=== PATIENT | female | born 1965 | race African-American/Black ===

== ENCOUNTER 2017-08-26 01:53 | Emergency (ER) | payer SELFPAY ==
[~2017-08-26] VITALS: Ht 165.1 cm; Wt 73.0 kg
[2017-08-26] MEDS ORDERED: OLANZAPINE 10 MG/VIAL IM ONE (03:45)
[2017-08-26 04:20] LABS: BASOPHILS % 0.6 % (0.0-2.0); EOSINOPHILS % 0.3 % (0.0-5.0); HEMATOCRIT. 39.8 % (36.0-48.0); HEMOGLOBIN. 13.2 g/dL (12.0-16.0); LYMPHOCYTES % 25.3 % (20.0-50.0); MEAN CORPUSCULAR HEMOGLOBIN 31.3 pg (28.0-32.0); MEAN CORPUSCULAR VOLUME 94.4 fL (81.0-99.0); MONOCYTES % 6.1 % (2.0-8.0); NEUTROPHILS % 67.7 % (40.0-76.0); PLATELET 283 x1000/uL (130-400); RED BLOOD CELL COUNT 4.21 mill/uL (4.2-5.4)
[2017-08-26 04:24] LABS: CHLORIDE 109 mEq/L (98-107)
[2017-08-26 04:29] LABS: HCG SCREEN NEGATIVE
[2017-08-26 04:35] LABS: CARBON DIOXIDE 29 mEq/L (21-32)
[2017-08-26 04:38] LABS: ETHANOL BLOOD 119 mg/dL
[2017-08-26 06:01] LABS: CLARITY URINE CLEAR (CLEAR); COLOR URINE YELLOW (YELLOW); KETONES URINE NEGATIVE (NEGATIVE); LEUKOCYTE ESTERASE URINE NEGATIVE (NEGATIVE); NITRITE URINE NEGATIVE (NEGATIVE); OCCULT BLOOD URINE NEGATIVE (NEGATIVE); PROTEIN URINE NEGATIVE (NEGATIVE); SPECIFIC GRAVITY URINE 1.008 (1.005-1.030); UROBILINOGEN URINE 0.2 E.U./dL (0.2-1.0)
[2017-08-26 06:11] LABS: *AMPHETAMINES SCREEN URINE NEGATIVE (NEGATIVE); *BARBITURATES SCREEN URINE NEGATIVE (NEGATIVE); *BENZODIAZEPINES SCREEN URINE NEGATIVE (NEGATIVE); *COCAINE SCREEN URINE NEGATIVE (NEGATIVE); CANNABINOID URINE SCREEN PRESUMTIVE POSITIVE (NEGATIVE); METHADONE URINE SCREEN NEGATIVE (NEGATIVE); OPIATES URINE SCREEN NEGATIVE (NEGATIVE); PHENCYCLIDINE URINE SCREEN NEGATIVE (NEGATIVE)
[2017-08-26] MEDS ORDERED: SODIUM CHLORIDE 0.9% 1,000 ML IV ONE (06:46)
[2017-08-26] MEDS ORDERED: SODIUM CHLORIDE 0.9% 1000ML BAG (SEPSIS BOLUS) IV ONE (07:00)
[2017-08-26 11:00] VITALS: BP 131/77
== END 2017-08-26 14:52 | disposition home or self-care (01) ==
LOC: ER 01:53
DX: F91.9 Conduct disorder, unspecified (principal); I10 Essential (primary) hypertension; Z88.2 Allergy status to sulfonamides
CPT/HCPCS: 36415; 80053; 80305; 80307; 80329; 81003; 83605; 84703; 85025; 87040; 93005; 96360; 96361; 96372; 99285; G0482; J3490; J7030; Z7610; A4315

== ENCOUNTER 2024-08-31 10:38 | Emergency (ER) | payer MEDICAID ==
[~2024-08-31] VITALS: Ht 165.1 cm; Wt 76.0 kg
[2024-08-31 10:40] VITALS: O2SAT 99
[2024-08-31 11:33] LABS: BASOPHILS % 0.5 % (0.0-2.0); EOSINOPHILS % 0.1 % (0.0-5.0); HEMATOCRIT. 45.1 % (36.0-48.0); MEAN CORPUSCULAR HEMOGLOBIN 32.1 pg (28.0-32.0); MEAN CORPUSCULAR HGB CONC 33.2 g/dL (31.0-37.0); MEAN CORPUSCULAR VOLUME 96.6 fL (81.0-99.0); MEAN PLATELET VOLUME 9.3 fl (7.4-10.4); NEUTROPHILS % 83.4 % (40.0-76.0); PLATELET 296 x1000/uL (130-400); RED BLOOD CELL COUNT 4.67 mill/uL (4.2-5.4); RED CELL DISTRIBUTION WIDTH 12.6 % (11.6-14.6); WHITE BLOOD COUNT 12.8 x1000/uL (4.5-11.0)
[2024-08-31 11:39] LABS: CHLORIDE 99 mEq/L (98-107); POTASSIUM 4.1 mEq/L (3.5-5.1); SODIUM 132 mEq/L (136-145)
[2024-08-31 11:40] LABS: CALCIUM 9.6 mg/dL (8.7-10.4); CARBON DIOXIDE 20 mEq/L (21-32)
[2024-08-31 11:45] LABS: CREATININE 1.2 mg/dL (0.6-1.0); GLUCOSE 383 mg/dL (70-105); UREA NITROGEN BLOOD 13 mg/dL (9-23)
[2024-08-31 11:46] LABS: TROPONIN I HIGH SENSITIVITY 9 ng/L (3.0-34)
[2024-08-31 11:47] LABS: BETA HYDROXYBUTYRATE 4.5 mMol/L (0.0-0.3)
[2024-08-31 12:16] LABS: BG CARBOXYHEMOGLOBIN 1.7 % (0.5-1.5); BG DEOXYHEMOGLOBIN 3.7 % (0.0-5.0); BG FRACTION INSPIRED OXYGEN 21; BG HCO3 ACT 17.1 mmol/L (21.0-28.0); BG METHEMOGLOBIN 0.3 % (0.5-1.5); BG OXYGEN SATURATION 96.2 % (94.0-98.0); BG OXYHEMOGLOBIN 94.3 % (94.0-98.0); BG PCO2 34.1 mmHg (32.0-45.0); BG PH 7.318 (7.350-7.450); BG PO2 87.5 mmHg (83.0-108.0); BG SAMPLE SITE RIGHT BRACHIAL; BG TOTAL HEMOGLOBIN 15.2 g/dL (12.0-16.0); BG VENT MODE ROOM AIR
[2024-08-31] MEDS: INSULIN REGULAR (HUMULIN R) 1000UNITS/10ML VIAL IV ONE (12:58)
[2024-08-31] MEDS: SODIUM CHLORIDE 0.9% 1,000 ML IV ONE (13:00)
[2024-08-31] MEDS ORDERED: AMLO10TA80 MT (13:04)
[2024-08-31] MEDS ORDERED: METF750T46 MT (13:04)
[2024-08-31 17:06] VITALS: O2SAT 100
[2024-08-31 17:07] VITALS: BP 147/78; PULSE 84; RESP 15; TEMP 97.7
[2024-09-04] MEDS ORDERED: INSU100I28 SQ (16:24)
[2024-09-05] MEDS ORDERED: METF-414 PO (10:14)
[2024-09-05] MEDS ORDERED: INSU100I28 SQ (10:14)
[2024-09-05] MEDS ORDERED: GLIP5TAB22 PO (10:14)
[2024-09-05] MEDS ORDERED: EMPA10TA PO (10:14)
== END 2024-08-31 18:26 | disposition home or self-care (01) ==
LOC: ER 10:38 → EDBEDREQ 14:33 → EDBEDREQTM 14:33 → ER 18:26
DX: E11.65 Type 2 diabetes mellitus with hyperglycemia (principal); F12.10 Cannabis abuse, uncomplicated; I10 Essential (primary) hypertension; Z88.2 Allergy status to sulfonamides
CPT/HCPCS: 80048; 82010; 82962; 85025; 84484; 36415; 71045; 82805; 82375; 96361; 96374; 99284; 36600; J1815; J7030; Z7610; A4606

== ENCOUNTER 2025-07-14 19:13 | Emergency (ER) | payer MEDICAID ==
[~2025-07-14] VITALS: Ht 165.1 cm; Wt 73.0 kg
[~2025-07-14 19:13] MED LIST: AMLO10TA80 MT; EMPA10TA PO; GLIP5TAB22 PO; INSU100I28 SQ; METF-414 PO
[2025-07-14 19:24] VITALS: O2SAT 100
[2025-07-14 21:16] LABS: BASOPHILS % 0.5 % (0.0-2.0); EOSINOPHILS % 1.0 % (0.0-5.0); HEMATOCRIT. 36.8 % (36.0-48.0); HEMOGLOBIN. 12.2 g/dL (12.0-16.0); LYMPHOCYTES % 27.7 % (20.0-50.0); MEAN PLATELET VOLUME 7.8 fl (7.4-10.4); MONOCYTES % 7.5 % (2.0-8.0); NEUTROPHILS % 63.3 % (40.0-76.0); PLATELET 275 x1000/uL (130-400); RED BLOOD CELL COUNT 3.92 mill/uL (4.2-5.4); RED CELL DISTRIBUTION WIDTH 12.9 % (11.6-14.6)
[2025-07-14 21:27] LABS: CLARITY URINE CLEAR (CLEAR); COLOR URINE YELLOW (YELLOW); GLUCOSE URINE NEGATIVE (NEGATIVE); KETONES URINE NEGATIVE (NEGATIVE); LEUKOCYTE ESTERASE URINE NEGATIVE (NEGATIVE); NITRITE URINE NEGATIVE (NEGATIVE); OCCULT BLOOD URINE NEGATIVE (NEGATIVE); PH URINE 5.5 (4.5-8.0); PROTEIN URINE NEGATIVE (NEGATIVE); SPECIFIC GRAVITY URINE 1.011 (1.005-1.030); UROBILINOGEN URINE 0.2 E.U./dL (0.2-1.0)
[2025-07-14 21:32] LABS: HCG SCREEN NEGATIVE
[2025-07-14 21:33] LABS: *AMPHETAMINES SCREEN URINE NEGATIVE (NEGATIVE); *BARBITURATES SCREEN URINE NEGATIVE (NEGATIVE); *BENZODIAZEPINES SCREEN URINE NEGATIVE (NEGATIVE); *COCAINE SCREEN URINE NEGATIVE (NEGATIVE); METHADONE URINE SCREEN NEGATIVE (NEGATIVE); OPIATES URINE SCREEN NEGATIVE (NEGATIVE); PHENCYCLIDINE URINE SCREEN NEGATIVE (NEGATIVE)
[2025-07-14 21:33] LABS: CREATININE 1.0 mg/dL (0.6-1.0); UREA NITROGEN BLOOD 11 mg/dL (9-23)
[2025-07-14 21:34] LABS: CANNABINOID URINE SCREEN PRESUMPTIVE POSITIVE (NEGATIVE); ECSTASY MDMA SCREEN URINE NEGATIVE (NEGATIVE)
[2025-07-14 21:34] LABS: ASPARTATE AMINOTRANSFERASE 13 IU/L (<34)
[2025-07-14 21:35] LABS: BILIRUBIN DIRECT 0.1 mg/dL (<=3.0); BILIRUBIN TOTAL 0.4 mg/dL (0.1-1.0); PROTEIN TOTAL 6.6 g/dL (6.0-8.3)
[2025-07-14 21:43] LABS: TROPONIN I HIGH SENSITIVITY < 4 ng/L (3.0-34)
[2025-07-14 22:27] VITALS: BP 132/76; PULSE 76; RESP 18; TEMP 36.9; O2SAT 100
== END 2025-07-14 22:28 | disposition home or self-care (01) ==
LOC: ER 19:13
DX: F41.9 Anxiety disorder, unspecified (principal); E11.9 Type 2 diabetes mellitus without complications; F12.90 Cannabis use, unspecified, uncomplicated; Z79.84 Long term (current) use of oral hypoglycemic drugs; Z79.4 Long term (current) use of insulin; Z79.899 Other long term (current) drug therapy; Z88.2 Allergy status to sulfonamides
CPT/HCPCS: 36415; 80048; 80076; 80305; 80320; 81003; 83735; 84484; 84703; 85025; 93005; 99284; G0480

== ENCOUNTER 2025-07-24 15:41 | Inpatient (IN) | payer MEDICAID ==
[~2025-07-24] VITALS: Ht 165.1 cm; Wt 77.6 kg
[2025-07-24 15:46] VITALS: O2SAT 99
[2025-07-24] MEDS ORDERED: SODIUM CHLORIDE 0.9% 1,000 ML IV ONE (16:00)
[2025-07-24 16:31] LABS: BG DEOXYHEMOGLOBIN 60.1 % (0.0-5.0)
[2025-07-24] MEDS: CEFTRIAXONE 1GM/50ML 50 ML IV ONE (16:36)
[2025-07-24] MEDS: SODIUM CHLORIDE 0.9% (SEPSIS BOLUS) IV ONE (16:36)
[2025-07-24 16:56] LABS: CLARITY URINE CLEAR (CLEAR); COLOR URINE YELLOW (YELLOW); GLUCOSE URINE 3+ (NEGATIVE); KETONES URINE 3+ (NEGATIVE); LEUKOCYTE ESTERASE URINE NEGATIVE (NEGATIVE); NITRITE URINE NEGATIVE (NEGATIVE); OCCULT BLOOD URINE NEGATIVE (NEGATIVE); PH URINE 5.5 (4.5-8.0); PROTEIN URINE NEGATIVE (NEGATIVE); SPECIFIC GRAVITY URINE 1.043 (1.005-1.030); UROBILINOGEN URINE 0.2 E.U./dL (0.2-1.0)
[2025-07-24 17:15] LABS: BASOPHILS % 0.7 % (0.0-2.0); EOSINOPHILS % 0.3 % (0.0-5.0); HEMATOCRIT. 38.8 % (36.0-48.0); HEMOGLOBIN. 12.7 g/dL (12.0-16.0); LYMPHOCYTES % 23.3 % (20.0-50.0); MEAN PLATELET VOLUME 8.6 fl (7.4-10.4); MONOCYTES % 6.1 % (2.0-8.0); NEUTROPHILS % 69.6 % (40.0-76.0); PLATELET 280 x1000/uL (130-400); RED BLOOD CELL COUNT 4.09 mill/uL (4.2-5.4); RED CELL DISTRIBUTION WIDTH 13.2 % (11.6-14.6)
[2025-07-24 17:21] LABS: INR 1.1
[2025-07-24 17:23] LABS: CREATININE 0.9 mg/dL (0.6-1.0); UREA NITROGEN BLOOD 7 mg/dL (9-23)
[2025-07-24 17:24] LABS: PROTEIN TOTAL 7.0 g/dL (6.0-8.3); TROPONIN I HIGH SENSITIVITY < 4 ng/L (3.0-34)
[2025-07-24 17:25] LABS: ASPARTATE AMINOTRANSFERASE 15 IU/L (<34); BILIRUBIN DIRECT 0.2 mg/dL (<=3.0)
[2025-07-24 17:26] LABS: BILIRUBIN TOTAL 0.5 mg/dL (0.1-1.0)
[2025-07-24 17:44] LABS: *AMPHETAMINES SCREEN URINE NEGATIVE (NEGATIVE); *BARBITURATES SCREEN URINE NEGATIVE (NEGATIVE); *BENZODIAZEPINES SCREEN URINE NEGATIVE (NEGATIVE); *COCAINE SCREEN URINE NEGATIVE (NEGATIVE); METHADONE URINE SCREEN NEGATIVE (NEGATIVE)
[2025-07-24 17:45] LABS: CANNABINOID URINE SCREEN PRESUMPTIVE POSITIVE (NEGATIVE); ECSTASY MDMA SCREEN URINE NEGATIVE (NEGATIVE); OPIATES URINE SCREEN NEGATIVE (NEGATIVE); PHENCYCLIDINE URINE SCREEN NEGATIVE (NEGATIVE)
[2025-07-24 20:14] LABS: BACTERIA URINE 1+; RBC URINE 0-2 /hpf (0-2); SQUAMOUS EPITHELIAL CELL URINE FEW /lpf (RARE/1+); WBC URINE 0-2 /hpf (0-2)
[2025-07-24] MEDS: DIAZEPAM 2 MG TABLET PO ONE (20:31)
[2025-07-24 20:45] VITALS: BP 118/62; PULSE 81; RESP 18; TEMP 36.9184
[2025-07-24] MEDS: ZOLPIDEM TARTRATE 5MG TABLET PO PRN (21:59)
[2025-07-24] MEDS ORDERED: INSULIN GLARGINE 100 UNITS/ML SUBCUT SCH (22:00)
[2025-07-24] MEDS ORDERED: DEXTROSE 50% WATER 50ML SYRINGE IV PRN (23:00)
[2025-07-24] MEDS ORDERED: ONDANSETRON HCL 4MG/2ML INJ IV PRN (23:00)
[2025-07-25] VITALS: BP 146/86; PULSE 91; RESP 18; TEMP 36.4; O2SAT 96
[2025-07-25 04:00] VITALS: BP 140/73; PULSE 90; RESP 18; TEMP 35.4; O2SAT 99
[2025-07-25 06:25] LABS: CREATININE 0.8 mg/dL (0.6-1.0)
[2025-07-25 06:26] LABS: LDL CHOLESTEROL 69 mg/dL (5-100); TRIGLYCERIDE 145 mg/dL (0-150); UREA NITROGEN BLOOD 7 mg/dL (9-23)
[2025-07-25 06:38] LABS: BASOPHILS % 0.5 % (0.0-2.0); EOSINOPHILS % 0.7 % (0.0-5.0); HEMATOCRIT. 39.3 % (36.0-48.0); HEMOGLOBIN. 12.9 g/dL (12.0-16.0); LYMPHOCYTES % 24.1 % (20.0-50.0); MEAN PLATELET VOLUME 9.1 fl (7.4-10.4); MONOCYTES % 7.0 % (2.0-8.0); NEUTROPHILS % 67.7 % (40.0-76.0); PLATELET 272 x1000/uL (130-400); RED BLOOD CELL COUNT 4.15 mill/uL (4.2-5.4); RED CELL DISTRIBUTION WIDTH 12.9 % (11.6-14.6)
[2025-07-25] MEDS: BLOOD SUGAR DIAGNOSTIC STRIP TEST SCH (07:20)
[2025-07-25] MEDS: INSULIN LISPRO 100 UNITS/ML SUBCUT SCH (07:41)
[2025-07-25 08:00] VITALS: BP 138/52; PULSE 78; RESP 18; TEMP 36.6; O2SAT 98
[2025-07-25 12:00] VITALS: BP 148/75; PULSE 75; RESP 18; TEMP 36.6; O2SAT 97
[2025-07-25] MEDS: INSULIN GLARGINE 100 UNITS/ML SUBCUT NR (13:41)
[2025-07-25 16:00] VITALS: BP 145/89; PULSE 98; RESP 18; TEMP 36.3; O2SAT 98
[2025-07-25] MEDS ORDERED: GADOTERATE MEGLUMINE 5 MMOL/10 ML VIAL IV ONE (17:33)
[2025-07-25 18:02] LABS: TROPONIN I HIGH SENSITIVITY 4 ng/L (3.0-34)
[2025-07-25] MEDS: LORAZEPAM 2MG/ML UD SYRINGE IV NR (19:00)
[2025-07-25 20:00] VITALS: BP 159/107; PULSE 95; RESP 18; TEMP 36.6; O2SAT 99
[2025-07-25] MEDS: ATORVASTATIN CALCIUM 40MG TABLET PO SCH (21:09)
[2025-07-25] MEDS: INSULIN GLARGINE 100 UNITS/ML SUBCUT SCH (21:11)
[2025-07-26] VITALS (7 sets, daily range): BP systolic 116–153; BP diastolic 52–93; PULSE 72–111; RESP 18; TEMP 36.3–37.2; O2SAT 98–100
[2025-07-26] MEDS: ZOLPIDEM TARTRATE 5MG TABLET PO NR (04:33)
[2025-07-26] MEDS: HYDROCODONE/ACETAMINOPHEN 5/325MG TABLET PO PRN (04:33)
[2025-07-26] MEDS ORDERED: NALOXONE HCL 0.4MG/ML VIAL IV PRN (10:00)
[2025-07-26] MEDS: INSULIN GLARGINE 100 UNITS/ML SUBCUT NR (13:54)
[2025-07-26] MEDS: HYDROXYZINE 25MG TABLET PO SCH (20:30)
[2025-07-26] MEDS: INSULIN GLARGINE 100 UNITS/ML SUBCUT SCH (20:32)
[2025-07-27] MEDS: ZOLPIDEM TARTRATE 5MG TABLET PO NR ×2 (01:32→21:01)
[2025-07-27 03:52] VITALS: PULSE 69
[2025-07-27 04:30] VITALS: BP 133/76; PULSE 85; RESP 18; TEMP 35.9; O2SAT 98
[2025-07-27] MEDS ORDERED: LORAZEPAM 2MG/ML UD SYRINGE IV SCH (07:30)
[2025-07-27 08:00] VITALS: BP 117/72; PULSE 80; RESP 15; TEMP 36.6; O2SAT 96
[2025-07-27] MEDS: LORAZEPAM 2MG/ML UD SYRINGE IV SCH (14:43)
[2025-07-27 16:00] VITALS: BP 145/84; PULSE 83; RESP 18; TEMP 36.4; O2SAT 97
[2025-07-27] MEDS ORDERED: BUSP10TA4 MT (16:13)
[2025-07-27] MEDS ORDERED: INSU100I28 SQ (16:13)
[2025-07-27 20:00] VITALS: BP 140/79; PULSE 90; RESP 19; TEMP 36.4; O2SAT 98
[2025-07-27] MEDS: HYDROXYZINE 25MG TABLET PO NR (21:00)
[2025-07-27] MEDS: BUSPIRONE HCL 10MG TABLET PO SCH (21:01)
[2025-07-27] MEDS: INSULIN GLARGINE 100 UNITS/ML SUBCUT SCH (21:08)
[2025-07-28] MEDS ORDERED: LORAZEPAM 2MG/ML UD SYRINGE IV PRN (00:30)
[2025-07-28] MEDS: LORAZEPAM 1MG TABLET PO PRN (00:47)
[2025-07-28 08:00] VITALS: BP 136/82; PULSE 86; RESP 18; TEMP 36.4; O2SAT 98
[2025-07-28 12:00] VITALS: BP 130/64; PULSE 68; RESP 19; TEMP 36.6; O2SAT 99
[2025-07-28] MEDS: HYDROXYZINE 25MG TABLET PO PRN (15:38)
[2025-07-28 16:00] VITALS: BP 133/77; PULSE 68; RESP 17; TEMP 36.5; O2SAT 99
[2025-07-28 20:00] VITALS: BP 136/84; PULSE 93; RESP 19; TEMP 36.6; O2SAT 98
[2025-07-28] MEDS: ZOLPIDEM TARTRATE 5MG TABLET PO PRN (20:12)
[2025-07-29] VITALS: BP 114/82; PULSE 96; RESP 18; TEMP 36; O2SAT 99
[2025-07-29 04:00] VITALS: BP 115/61; PULSE 85; RESP 20; TEMP 36.6; O2SAT 100
[2025-07-29 08:00] VITALS: BP 118/65; PULSE 83; RESP 18; TEMP 36.3; O2SAT 99
[2025-07-29 12:00] VITALS: BP 133/73; PULSE 85; RESP 17; TEMP 36.6; O2SAT 97
[2025-07-29 16:00] VITALS: BP 152/92; PULSE 101; RESP 18; TEMP 36.5; O2SAT 98
[2025-07-29] MEDS ORDERED: ZOLPIDEM TARTRATE 5MG TABLET PO PRN (18:45)
[2025-07-29 20:00] VITALS: BP 130/75; PULSE 90; RESP 20; TEMP 36.3; O2SAT 98
[2025-07-30 16:00] VITALS: BP 143/84; PULSE 87; RESP 20; TEMP 36.2; O2SAT 97
[2025-07-30 20:00] VITALS: BP 142/76; PULSE 91; RESP 18; TEMP 36.4; O2SAT 97
[2025-07-30] MEDS: HYDROCODONE/ACETAMINOPHEN 5/325MG TABLET PO PRN (23:56)
[2025-07-31] VITALS: BP 152/93; PULSE 96; RESP 18; TEMP 36.3; O2SAT 96
[2025-07-31 11:37] VITALS: BP 153/92; PULSE 94; RESP 20; TEMP 96.1
== END 2025-07-31 12:08 | disposition home or self-care (01) | DRG 420 ==
LOC: ER 15:41 → EDBEDREQTM 17:37 → EDBEDREQ 17:37 → ENRESERV 20:24 → 6WST 20:48 → 6EST 07-28 11:30
PROVIDERS: ADMIT Internal Medicine; ATTEND Internal Medicine
DX: E11.10 Type 2 diabetes mellitus with ketoacidosis without coma (principal); G93.40 Encephalopathy, unspecified; E11.65 Type 2 diabetes mellitus with hyperglycemia; I10 Essential (primary) hypertension; G93.0 Cerebral cysts; F41.9 Anxiety disorder, unspecified; Z79.4 Long term (current) use of insulin; Z79.84 Long term (current) use of oral hypoglycemic drugs; Z79.899 Other long term (current) drug therapy; Z88.2 Allergy status to sulfonamides
CPT/HCPCS: 36415; 70553; 71045; 80048; 80061; 80076; 80305; 80320; 81003; 82010; 82375; 82803; 82962; 83036; 83605; 83735; 83930; 84145; 84484; 85025; 93005; 96365; 99291; A4606; A9577; J0696; J1815; J2060; J7030; G0480